=== PATIENT | male | born 1960 | race Caucasian/White ===

== ENCOUNTER 2017-02-01 11:21 | Emergency (ER) | payer OTHER ==
[~2017-02-01] VITALS: Ht 172.7 cm; Wt 106.0 kg
[~2017-02-01 11:21] MED LIST: ADVA250A INH; ALBU6.7H INH; CETI5TAB2 PO; LANSO15 PO; MEDR4PAK3 PO; POTAGRA XX; SYMB160A INH
[2017-02-01 11:24] VITALS: BP 155/89; PULSE 116; RESP 22; TEMP 98.2; O2SAT 96
[2017-02-01] MEDS ORDERED: SODIUM CHLOR 0.9% 1000 ML INJ 1,000 ML IV SCH (11:29)
[2017-02-01] MEDS ORDERED: SODIUM CHLORIDE 0.9% FLUSH 10 ML FLUSH IV FLUSH PRN (11:30)
[2017-02-01] MEDS ORDERED: FAMOTIDINE 20 MG/2 ML VIAL IV PUSH ONE (11:30)
[2017-02-01] MEDS ORDERED: EPINEPHrine HCL (1:1000) 1 MG/ML VIAL IM ONE (11:30)
--- NOTE | 2017-02-01 11:31 | PD ---
HPI Chief Complaint: Allergic/Adverse Reaction Time Seen by Provider: 11:27 Travel History International Travel<30 days: No Contact w/Intl Traveler<30days: No Traveled to known affect area: No History of Present Illness HPI This is a 56-year-old male who presents to the emergency department having had onset of an acute allergic reaction at an urgent care. The patient was therefore knee pain and swelling. He received Toradol. He says he is allergic to ibuprofen. He started to have wheezing, throat tightness and difficulty breathing, severe, constant, persistent since he was transferred here. He received 50 mg of IM Benadryl and 125 of IM Solu-Medrol at the time. He also received 3 breathing treatments. He says his breathing feels a little better but he feels like his throat is closing. PFSH Past Medical History Arthritis: Yes (hand) Asthma: Yes Blood Disorders: No Cancer: No Cardiovascular Problems: No Diminished Hearing: No Endocrine: No Gastrointestinal Disorders: Yes GERD: Yes Gout: Yes Genitourinary: No Hiatal Hernia: Yes Immune Disorder: No Implanted Vascular Access Dvce: No Kidney Stones: Yes Musculoskeletal: Yes Neurologic: No Psychiatric: No Reproductive: No Respiratory: Yes ?: Not Past Surgical History AICD: No Arteriovenous Shunt: No Insulin Pump: No Joint Replacement: No Oral Surgery: Yes Other Surgery: Yes Social History Alcohol Use: Yes (2 BEERS PER DAY) Tobacco Use: No Substance Use: No Allergies-Medications (Allergen,Severity, Reaction): Coded Allergies: acetaminophen (Unverified Allergy, Severe, CAUSES ASTHMA TO GET WORSE, ) ibuprofen (Unverified Allergy, Severe, SETS OFF PT'S ASTHMA, 02/01/17) Reported Meds & Prescriptions Reported Meds & Active Scripts Active Medrol Dosepak (Methylprednisolone) 4 Mg [place] 4 Mg PO DIRECTED TAKE DIRECTED Advair Diskus 250/50 (Salmeterol Xinafoate/Fluticasone) 250 Mcg/50 Mcg Inhp 1 Puff INH BID Potassium Citrate (Potassium Citrate/Citric Acid) Gra 1 - XX BID 31 Days Reported Zyrtec (Cetirizine HCl) 5 Mg Tab 5 Mg PO DAILY Prevacid 15 Mg Solutab (Lansoprazole) 15 Mg Tab 15 Mg PO DAILY Proventil Hfa (Albuterol Sulfate) 6.7 Gm Aero 2 Puff INH Q4HPRN * SHAKE WELL BEFORE USE * Symbicort (Budesonide/Formoterol Fumarate) 160 Mcg/4.5 Mcg Aer 2 Puff INH BID * SHAKE WELL BEFORE USE * Review of Systems Except as stated in HPI: all other systems reviewed are Neg Physical Exam Narrative GENERAL: Anxious appearing. SKIN: Focused skin assessment warm and dry. HEAD: Atraumatic. Normocephalic. EYES: Pupils equal and round. No injection or drainage. ENT: Moist mucous membranes NECK: Trachea midline. CARDIOVASCULAR: Regular rate and rhythm. No murmur appreciated. RESPIRATORY: Diffuse wheezing. Tachypnea. GASTROINTESTINAL: Abdomen soft, non-tender, nondistended. MUSCULOSKELETAL: No obvious deformities. NEUROLOGICAL: Awake and alert. No obvious cranial nerve deficits. Moving all extremities. Data Data Last Documented VS Vital Signs Date Time Temp Pulse Resp B/P (MAP) Pulse Ox O2 Delivery O2 Flow Rate FiO2 02/01/17 15:26 110 96 Room Air 02/01/17 14:00 20 134/81 (98) 2.00 02/01/17 11:24 98.2 Orders Orders Ecg Monitoring (02/01/17 11:29) Iv Access Insert/Monitor (02/01/17 11:29) Oximetry (02/01/17 11:29) Albuterol Neb (Albuterol Neb) (02/01/17 11:30) Sodium Chlor 0.9% 1000 Ml Inj (Ns 1000 M (02/01/17 11:29) Sodium Chloride 0.9% Flush (Ns Flush) (02/01/17 11:30) Epinephrine (1:1000) Inj (Adrenalin (1:1 (02/01/17 11:30) Famotidine Inj (Pepcid Inj) (02/01/17 11:30) Complete Blood Count With Diff (02/01/17 11:30) Basic Metabolic Panel (Bmp) (02/01/17 11:30) Knee, Complete (4vws) (02/01/17 ) Labs Laboratory Tests Test 02/01/17 11:45 White Blood Count 18.4 TH/MM3 Red Blood Count 4.84 MIL/MM3 Hemoglobin 16.3 GM/DL Hematocrit 47.1 % Mean Corpuscular Volume 97.3 FL Mean Corpuscular Hemoglobin 33.6 PG Mean Corpuscular Hemoglobin Concent 34.5 % Red Cell Distribution Width 11.9 % Platelet Count 218 TH/MM3 Mean Platelet Volume 8.4 FL Neutrophils (%) (Auto) 73.1 % Lymphocytes (%) (Auto) 16.0 % Monocytes (%) (Auto) 6.6 % Eosinophils (%) (Auto) 3.9 % Basophils (%) (Auto) 0.4 % Neutrophils # (Auto) 13.5 TH/MM3 Lymphocytes # (Auto) 2.9 TH/MM3 Monocytes # (Auto) 1.2 TH/MM3 Eosinophils # (Auto) 0.7 TH/MM3 Basophils # (Auto) 0.1 TH/MM3 CBC Comment DIFF FINAL Differential Comment Blood Urea Nitrogen 17 MG/DL Creatinine 1.10 MG/DL Random Glucose 126 MG/DL Calcium Level 8.5 MG/DL Sodium Level 138 MEQ/L Potassium Level 4.1 MEQ/L Chloride Level 105 MEQ/L Carbon Dioxide Level 24.3 MEQ/L Anion Gap 9 MEQ/L Estimat Glomerular Filtration Rate 70 ML/MIN MDM Medical Decision Making Medical Screen Exam Complete: Yes Emergency Medical Condition: Yes Interpretation(s) Afebrile, tachycardic, hypertensive Leukocytosis likely stress response electrolytes within normal limits Differential Diagnosis Acute allergic reaction, anaphylaxis, septic arthritis, psoriatic arthritis, bursitis Narrative Course This is a 56-year-old male who presents to the emergency department having had an acute allergic reaction to Toradol at an urgent care. Patient on arrival was uncomfortable appearing, wheezing, ring that his throat was closing concerning for anaphylaxis. He was given epinephrine. He received Solu-Medrol and Benadryl prior to arrival. He was given IV fluids. He was observed for 4 hours and he improved significantly. I did perform an x-ray of his knee which demonstrates a small effusion and some arthritis. The knee is not warm and can be ranged without much difficulty. I don't suspect a septic arthritis. He is pretty focally tender along the medial lower aspect of the knee suggestive of bursitis. 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 I advised patient to continue ice, rest and an Omer wrap. I think patient is safe for discharge. He was discharged on prednisone. Diagnosis Primary Impression: Acute allergic reaction Qualified Codes: T78.40XA - Allergy, unspecified, initial encounter Additional Impression: Bursitis Qualified Codes: M70.51 - Other bursitis of knee, right knee Patient Instructions: General Instructions Additional Instructions: If you develop swelling of the throat or coughing a lot, wheezing or trouble breathing, throwing up or having diarrhea, feeling dizzy or passing out, or spreading of your rash return to the emergency room immediately as you may be having a life threatening allergic reaction. Complete your course of steroids and take benadryl every 4 hours for the next 48 hours and then as needed for itching or other symptoms. Med/Other Pt SpecificInfo: Prescription(s) given Scripts Tramadol (Tramadol) 50 Mg Tab 50 MG PO Q6H Y for PAIN, #14 TAB 0 Refills Prov: Lesia Cardenas MD 02/01/17 Prednisone (Prednisone) 20 Mg Tab 40 MG PO DAILY for 4 Days, TAB 0 Refills Prov: Lesia Cardenas MD 02/01/17 Disposition: 01 DISCHARGE HOME Condition: Stable Lesia Cardenas MD Feb 01, 2017 11:31
[2017-02-01 11:43] VITALS: BP 187/90; PULSE 115; RESP 20; O2SAT 96
[2017-02-01] MEDS: RESP: ALBUTEROL 2.5 MG/3 ML NEB (SCH) INH (11:49)
[2017-02-01 11:52] LABS: AUTOMATED NEUTROPHIL # 13.5 TH/MM3 (1.8-7.7); BASOPHIL # 0.1 TH/MM3 (0-0.2); BASOPHIL % 0.4 % (0.0-2.0); EOSINOPHIL # 0.7 TH/MM3 (0-0.4); EOSINOPHIL % 3.9 % (0.0-4.0); HEMATOCRIT 47.1 % (39.0-51.0); HEMO FLAGS DIFF FINAL; LYMPHOCYTE # 2.9 TH/MM3 (1.0-4.8); MEAN CELL VOLUME 97.3 FL (80.0-100.0); MEAN CORPUSCULAR HEMOGLOBIN 33.6 PG (27.0-34.0); MEAN CORPUSCULAR HGB CONC 34.5 % (32.0-36.0); MONO % 6.6 % (0.0-8.0); NEUT % 73.1 % (16.0-70.0); PLATELET COUNT 218 TH/MM3 (150-450); RED BLOOD COUNT 4.84 MIL/MM3 (4.50-5.90); RED CELL DISTRIBUTION WIDTH 11.9 % (11.6-17.2); WHITE BLOOD COUNT 18.4 TH/MM3 (4.0-11.0)
[2017-02-01 12:00] LABS: POTASSIUM 4.1 MEQ/L (3.5-5.1)
[2017-02-01 12:02] LABS: BICARBONATE 24.3 MEQ/L (21.0-32.0)
[2017-02-01 12:38] VITALS: BP 184/91; PULSE 114; RESP 20; O2SAT 97
--- NOTE | 2017-02-01 13:32 | RADRPT ---
EXAM DATE/TIME: 02/01/2017 12:51 [facility] COMPARISON: No previous studies available for comparison. INDICATIONS : Right knee pain progressively becoming worse with no apparent injury. MEDICAL HISTORY : Gastroesophageal reflux disease. Hiatal hernia. Arthritis. Gout. Renal calculi. Asthma. Wheezing. SURGICAL HISTORY : Surgeries to both hands. ENCOUNTER: Initial ACUITY: 1 month PAIN SCORE: 9/10 LOCATION: Right knee FINDINGS: Four view examination of the right knee demonstrates no evidence of fracture or dislocation. Bony mi neralization is normal. Mild degenerative changes are noted in the patellofemoral joint with slight s purring. There is fullness in the suprapatellar bursa region consistent with a small joint effusion. The soft tissues are otherwise unremarkable. CONCLUSION: 1. Mild osteoarthritic change. 2. Small joint effusion. Juan Mercer MD on February 01, 2017 at 13:30 Board Certified Radiologist. This report was verified electronically.
[2017-02-01 14:00] VITALS: BP 134/81; PULSE 112; RESP 20; O2SAT 96
[2017-02-01] MEDS ORDERED: TRAM50TA PO (15:48)
[2017-02-01] MEDS ORDERED: PRED20 PO (15:48)
[2017-02-01] MEDS ORDERED: EPIP0.3I IM (15:50)
[2017-02-01 16:02] VITALS: BP 177/87
== END 2017-02-01 16:03 | disposition home or self-care (01) ==
LOC: PHED 11:21
DX: T78.40XA Allergy, unspecified, initial encounter (principal); M70.51 Other bursitis of knee, right knee
CPT/HCPCS: 73564; 80048; 85025; 94640; 94664; 96361; 96372; 96374; 99284; J0171; J7030; J7613